=== PATIENT | female | born 1975 | race Caucasian/White ===

== ENCOUNTER 2017-03-08 01:37 | Emergency (ER) | payer BC, OTHER ==
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
[2017-03-08 02:51] VITALS: BP 122/81
--- NOTE | 2017-03-08 08:23 | CT ---
DATE OF SERVICE: 03/08/2017 CLINICAL DATA: Fall. UNENHANCED BRAIN CT Multislice acquisition through the brain without IV contrast was performed. No priors. No masses or mass effect. No intracranial hemorrhage. No evidence of acute or subacute infarct. There is mucosal thickening of the ethmoid and sphenoid sinuses consistent with chronic sinusitis. The frontal sinuses are hypoplastic. No fractures. IMPRESSION: No acute intracranial abnormalities. [id number] [facility]
== END 2017-03-08 02:20 | disposition home or self-care (01) ==
LOC: LB.ED 01:37
DX: S06.0X9A Concussion with loss of consciousness of unspecified duration, initial encounter (principal); W18.09XA Striking against other object with subsequent fall, initial encounter
CPT/HCPCS: 70450; 99283-25